=== PATIENT | female | born 1985 | race Hispanic/Latino ===

== ENCOUNTER 2017-10-12 08:31 | Observation (INO) | payer MEDICAID | END 2017-10-12 10:08 | disposition home or self-care (01) | LOC: LDH 08:31 | PROVIDERS: ADMIT Specialist; ATTEND Specialist | DX: O24.419 Gestational diabetes mellitus in pregnancy, unspecified control (principal); Z79.4 Long term (current) use of insulin; Z3A.35 35 weeks gestation of pregnancy | CPT/HCPCS: 59025; 76819; G0378 ×3 ==

== ENCOUNTER 2018-03-27 13:33 | Emergency (ER) | payer MEDICAID, OTHER ==
[~2018-03-27 13:33] MED LIST: NPH,100V SQ
[2018-03-27] MEDS ORDERED: TETANUS/DIPHTHERIA TOXOID [ADULT] 0.5 ML VIAL IM ONE (14:16)
[2018-03-27] MEDS ORDERED: AMOXICILLIN/POTASSIUM CLAV 500-125 TABLET PO ONE (14:30)
== END 2018-03-27 15:05 | disposition home or self-care (01) ==
LOC: EDH 13:33
DX: S60.572A Other superficial bite of hand of left hand, initial encounter (principal); E11.9 Type 2 diabetes mellitus without complications; W54.0XXA Bitten by dog, initial encounter; Y93.89 Activity, other specified; Y92.098 Other place in other non-institutional residence as the place of occurrence of the external cause; Y99.8 Other external cause status
CPT/HCPCS: 90471; 90714

== ENCOUNTER 2019-10-10 17:49 | Observation (INO) | payer MEDICAID | END 2019-10-10 19:00 | disposition home or self-care (01) | LOC: LDH 17:49 | PROVIDERS: ADMIT Specialist; ATTEND Specialist | DX: O26.893 Other specified pregnancy related conditions, third trimester (principal); Z3A.33 33 weeks gestation of pregnancy | CPT/HCPCS: 59025; 76819; G0378 ==

== ENCOUNTER 2019-11-15 17:45 | Inpatient (IN) | payer MEDICAID ==
[~2019-11-15] VITALS: Ht 152.4 cm; Wt 94.8 kg
[2019-11-15] MEDS ORDERED: LACTATED RINGERS 1000ML 1,000 ML IV PRN (18:07)
[2019-11-15] MEDS ORDERED: AMPICILLIN 2GM+NS 100ML 100 ML IV SCH (18:15)
[2019-11-15] MEDS ORDERED: OXYTOCIN-LR 20 UNITS/1000 ML 1,000 ML IV SCH (19:00)
[2019-11-15] MEDS: AMPICILLIN 1GM+NS 50ML 50 ML IV SCH (23:04)
[2019-11-16] MEDS ORDERED: INSULIN HUMULIN R 100 UNIT/ML 3ML SQ SCH ×2 (01:00)
[2019-11-16] MEDS: AMPICILLIN 1GM+NS 50ML 50 ML IV SCH ×3 (02:32→22:15)
[2019-11-16] MEDS ORDERED: NALOXONE HCL 0.4 MG/1 ML ML IV PRN (08:00)
[2019-11-16] MEDS ORDERED: LACTATED RINGERS 500 ML 500 ML IV PRN (08:00)
[2019-11-16] MEDS ORDERED: EPHEDRINE SULFATE 50 MG/ML AMPULE IVP PRN (08:00)
[2019-11-16] MEDS ORDERED: LANOLIN 30GM OINTMENT TP PRN (11:15)
[2019-11-16] MEDS ORDERED: ACETAMINOPHEN-CODEINE 300/30MG TAB PO PRN (11:15)
[2019-11-16] MEDS ORDERED: OXYTOCIN-LR 20 UNITS/1000 ML 1,000 ML IV SCH (11:15)
[2019-11-16] MEDS ORDERED: WITCH HAZEL 1 PAD TP PRN (11:15)
[2019-11-16] MEDS ORDERED: BENZOCAINE/LANOLIN/ALOE VERA 60 ML AEROSOL TP PRN (11:15)
[2019-11-16] MEDS ORDERED: ACETAMINOPHEN 325 MG TAB PO PRN (11:15)
[2019-11-16] MEDS ORDERED: MAGNESIUM SULFATE 1,000 ML IV PRN (15:01)
[2019-11-16] MEDS ORDERED: CALCIUM GLUCONATE 1 GM/10 ML VIAL IV PRN (15:15)
[2019-11-16] MEDS ORDERED: MAGNESIUM 4GM PREMIX 100ML 100 ML IV PRN ×2 (15:15)
[2019-11-16] MEDS ORDERED: LABETALOL HCL 5 MG/ML 20ML VIAL IV SCH (18:55)
[2019-11-16 19:30] VITALS: BP 148/76; PULSE 57; RESP 18; TEMP 98.1
[2019-11-16 20:05] VITALS: BP 150/71; PULSE 57; RESP 18
[2019-11-16 20:34] VITALS: BP 166/70; PULSE 63; RESP 20
[2019-11-16] MEDS: DOCUSATE SODIUM 100 MG CAP PO SCH (21:35)
[2019-11-17] VITALS: BP 139/67; PULSE 60; RESP 20; TEMP 98.3
[2019-11-17] MEDS ORDERED: INSULIN HUMULIN R 100 UNIT/ML 3ML SQ SCH
[2019-11-17] MEDS: AMPICILLIN 1GM+NS 50ML 50 ML IV SCH ×2 (00:42→00:43)
[2019-11-17] MEDS: LACTATED RINGERS 1000ML 1,000 ML IV SCH ×2 (00:50→04:21)
[2019-11-17 03:30] VITALS: BP 139/69; PULSE 59; RESP 18; TEMP 98.4
[2019-11-17] MEDS: INSULIN HUMULIN R 100 UNIT/ML 3ML SQ SCH ×3 (06:00→18:00)
--- NOTE | 2019-11-17 06:30 | NUR ---
DR. PADILLA HERE AND WENT TO ASSESS PT, NEW ORDERS NOTEDFOR CLEAR LIQUID DIET.
[2019-11-17 14:35] VITALS: BP 145/86; PULSE 72; RESP 18; TEMP 98.2
[2019-11-17] MEDS: IBUPROFEN 600 MG TABLET PO PRN ×2 (15:09→21:05)
[2019-11-17] MEDS ORDERED: DIPH,PERTUSS(ACELL),TET VAC/PF 0.5 ML VIAL IM ONE (18:45)
[2019-11-17 20:23] VITALS: BP 146/76; PULSE 61; RESP 20; TEMP 98
[2019-11-17] MEDS: DOCUSATE SODIUM 100 MG CAP PO SCH (21:05)
[2019-11-17 23:20] VITALS: BP 140/57; PULSE 60; RESP 20; TEMP 98.2
[2019-11-18 03:47] VITALS: BP 150/78; PULSE 57; RESP 20; TEMP 97.8
[2019-11-18] MEDS: INSULIN HUMULIN R 100 UNIT/ML 3ML SQ SCH ×2 (06:00)
[2019-11-18] MEDS: IBUPROFEN 600 MG TABLET PO PRN (06:34)
[2019-11-18] MEDS ORDERED: DIPH,PERTUSS(ACELL),TET VAC/PF 0.5 ML VIAL IM ONE (07:00)
[2019-11-18 07:22] VITALS: BP 143/75; PULSE 59; RESP 18; TEMP 98
[2019-11-18] MEDS: DOCUSATE SODIUM 100 MG CAP PO SCH (09:06)
[2019-11-18 11:13] VITALS: BP 146/77; PULSE 59; RESP 18; TEMP 98.1
--- NOTE | 2019-11-18 14:05 | NUR ---
DISCHARGE PT LET UNIT VIA WHEELCHAIR, WITH BABY IN ARMS, ACCOMPANIED BY FAMILY. DENIED PAIN AND HAD NO COMPLAINTS. BABY STRAPPED IN CAR SEAT. PT AND BABY TRANSPORTED BY PERSONAL VEHICLE.
== END 2019-11-18 14:05 | disposition home or self-care (01) | DRG 560 ==
LOC: LDH 17:45 → WSH 11-17 14:30
PROVIDERS: ADMIT Specialist; ATTEND Specialist
PROC: 10D07Z6 Extraction of Products of Conception, Vacuum, Via Natural or Artificial Opening (ICD-10-PCS; principal; 2019-11-16)
PROC: 3E0234Z Introduction of Serum, Toxoid and Vaccine into Muscle, Percutaneous Approach (ICD-10-PCS; 2019-11-16)
PROC: 3E0R3BZ Introduction of Anesthetic Agent into Spinal Canal, Percutaneous Approach (ICD-10-PCS; 2019-11-16)
PROC: 00HU33Z Insertion of Infusion Device into Spinal Canal, Percutaneous Approach (ICD-10-PCS; 2019-11-16)
DX: O24.424 Gestational diabetes mellitus in childbirth, insulin controlled (principal); Z37.0 Single live birth; O16.4 Unspecified maternal hypertension, complicating childbirth; O66.0 Obstructed labor due to shoulder dystocia; Z3A.39 39 weeks gestation of pregnancy; Z79.4 Long term (current) use of insulin; Z23 Encounter for immunization; O99.824 Streptococcus B carrier state complicating childbirth

== ENCOUNTER 2020-02-16 11:24 | Day surgery (SDC) | payer MEDICAID ==
[2020-02-09 13:11] LABS: BASOPHILS % (AUTO) 0.6 % (0.0-5.0); EOSINOPHILS % (AUTO) 1.5 % (0.0-8.0); HEMATOCRIT 39.6 % (36-48); MEAN CORPUSCULAR HEMOGLOBIN 28.7 pg (27.0-33.0); MEAN CORPUSCULAR HGB CONC 33.3 g/dL (32.0-36.0); MEAN CORPUSCULAR VOLUME 86.1 fL (79-99); MONOCYTES % (AUTO) 5.9 % (3.0-13.0); NEUTROPHILS % (AUTO) 60.7 % (40.0-77.0); PLATELET COUNT (AUTO) 363 K/uL (130-400); RED CELL DISTRIBUTION WIDTH 12.9 % (11.0-15.5); WHITE BLOOD COUNT (AUTO) 8.8 K/uL (4.8-10.8)
[2020-02-15 10:36] VITALS: BP 142/84
[~2020-02-16] VITALS: Ht 160 cm; Wt 86.2 kg
[2020-02-16] VITALS (17 sets, daily range): BP systolic 123–165; BP diastolic 67–94
[~2020-02-16 11:24] MED LIST changes: +PREN-154 PO
[2020-02-16] MEDS ORDERED: SODIUM CHLORIDE 0.9% 1000ML 1,000 ML IV ONE (11:40)
[2020-02-16 12:33] LABS: CREATININE 0.7 mg/dL (0.5-1.5); POTASSIUM 4.1 mmol/L (3.5-5.1)
[2020-02-16] MEDS ORDERED: SUCCINYLCHOLINE CHLORIDE 20 MG/ML 10 ML VIAL ONE ×2 (13:09→13:11)
[2020-02-16] MEDS ORDERED: DEXAMETHASONE SOD PHOSPHATE 10MG/ML 1ML VIAL ONE (13:09)
[2020-02-16] MEDS ORDERED: LIDOCAINE PF 2% 5ML ABBOJECT ONE ×2 (13:09→13:11)
[2020-02-16] MEDS ORDERED: NEOSTIGMINE 5MG/5ML SYR IV ONE (13:10)
[2020-02-16] MEDS ORDERED: ROCURONIUM 10MG/1ML SYR 10 MG/ML ML ONE (13:10)
[2020-02-16] MEDS ORDERED: ONDANSETRON HCL 4 MG/2 ML VIAL ONE ×2 (13:10→14:01)
[2020-02-16] MEDS ORDERED: MIDAZOLAM HCL 1 MG/ML 2ML VIAL ONE (13:10)
[2020-02-16] MEDS ORDERED: FENTANYL CITRATE PF 50 MCG/1 ML 2ML VIAL ONE ×2 (13:10→13:53)
[2020-02-16] MEDS ORDERED: GLYCOPYRROLATE 1 MG/5 ML SYRINGE ONE (13:10)
[2020-02-16] MEDS ORDERED: PROPOFOL 10 MG/ML 20ML VIAL IV ONE (13:10)
[2020-02-16] MEDS ORDERED: MEPERIDINE-PF 25 MG/ML SYG ONE (15:09)
--- NOTE | 2020-02-16 15:46 | NUR ---
ASSESSMENT RECEIVED PT FROM PACU NURSE BRINDA RN. PT [id number]. DRSG X2 TO ABD DRY AND INTACT.
--- NOTE | 2020-02-16 16:15 | NUR ---
DISCHARGE ORAL AND WRITTEN DISCHARGE INSTRUCTIONS GIVEN TO PT AND PTS SISTER ALONG WITH PRESCRIPTIONS. NO OTHER QUESTIONS AT THIS TIME.
== END 2020-02-16 16:17 | disposition home or self-care (01) ==
LOC: DAH 11:24
PROVIDERS: ATTEND Specialist
DX: Z30.2 Encounter for sterilization (principal); Z20.828 Contact with and (suspected) exposure to other viral communicable diseases; E11.9 Type 2 diabetes mellitus without complications
CPT/HCPCS: 36415 ×2; 58671; 80048; 82948; 84703; 85025; 86850 ×2; 86900 ×2; 86901 ×2; A4215 ×2; A4221; A4223; A4264; A4351; A4663; C1751; C1769 ×2; C9803; J0330 ×2; J1100; J2001 ×2; J2175; J2250; J2405 ×2; J2704; J2710; J3010 ×2; J3490; J7030 ×2; U0003

== ENCOUNTER 2020-03-11 18:14 | Emergency (ER) | payer MEDICAID | END 2020-03-11 18:54 | disposition home or self-care (01) | LOC: EDH 18:14 | DX: Z48.02 Encounter for removal of sutures (principal); S31.115D Laceration without foreign body of abdominal wall, periumbilic region without penetration into peritoneal cavity, subsequent encounter; E11.9 Type 2 diabetes mellitus without complications ==

== ENCOUNTER → 2022-11-27 | Outpatient (CLI) | payer OTHER | END | disposition home or self-care (01) | LOC: DTH 11:05 | PROVIDERS: ATTEND Surgery | DX: Z71.3 Dietary counseling and surveillance (principal); E66.09 Other obesity due to excess calories; I10 Essential (primary) hypertension; E11.9 Type 2 diabetes mellitus without complications; E78.00 Pure hypercholesterolemia, unspecified; M19.91 Primary osteoarthritis, unspecified site; K21.9 Gastro-esophageal reflux disease without esophagitis; Z68.37 Body mass index [BMI] 37.0-37.9, adult | CPT/HCPCS: 97803 ==

== ENCOUNTER 2023-01-22 02:47 | Emergency (ER) | payer OTHER ==
[~2023-01-22] VITALS: Ht 152.4 cm; Wt 80.3 kg
[2023-01-22 02:48] VITALS: BP 131/79; PULSE 81; RESP 16
[2023-01-22 03:10] LABS: ADD UA MICROSCOPIC YES; APPEARANCE,URINE TURBID (CLEAR); BILIRUBIN,URINE NEGATIVE (NEGATIVE); COLOR,URINE YELLOW (YELLOW); GLUCOSE, URINE (UA) >=1000 mg/dL (NEGATIVE); KETONES,URINE NEGATIVE (NEGATIVE); LEUKOCYTE ESTERASE ,URINE 500 Leu/uL (NEGATIVE); NITRATE,URINE 2+ (NEGATIVE); OCCULT BLOOD,URINE MODERATE (NEGATIVE); PH,URINE 6.5 (5.0-8.0); PROTEIN,URINE 100 mg/dL (NEGATIVE); UROBILINOGEN,URINE 0.2 mg/dL (0.2-1.0)
[2023-01-22 03:15] LABS: RBC,URINE 51-100 /HPF (0-1); RENAL EPITHELIAL CELLS,URINE FEW /HPF (None Seen); UNCLASSIFIED CRYSTAL 11 /HPF (None Seen); WBC CLUMP MANY /HPF (0-1); WBC,URINE TNTC /HPF (0-1)
[2023-01-22] MEDS ORDERED: CEFTRIAXONE 2GM VIAL IJ ONE (04:00)
[2023-01-22] MEDS ORDERED: PHENAZOPYRIDINE HCL 200 MG TABLET PO ONE (04:00)
[2023-01-22] MEDS ORDERED: CEPH500B PO (04:48)
[2023-01-22] MEDS ORDERED: PHEN-847 PO (04:48)
== END 2023-01-22 04:52 | disposition home or self-care (01) ==
LOC: EDH 02:47
DX: N39.0 Urinary tract infection, site not specified (principal); E11.9 Type 2 diabetes mellitus without complications
CPT/HCPCS: 99283; 87077; 87088; 87186; 81001; J0696

== ENCOUNTER 2023-08-31 21:23 | Emergency (ER) | payer OTHER ==
[~2023-08-31] VITALS: Ht 152.4 cm; Wt 68.9 kg
[~2023-08-31 21:23] MED LIST changes: +FENO145T26 PO; +GLIM4TAB36 PO; +LISI5TAB21 PO; +METF-446 PO; -NPH,100V SQ; -PREN-154 PO
[2023-09-01] MEDS ORDERED: IBUP-1493 PO (01:18)
[2023-09-01] MEDS ORDERED: VALA10002 PO (01:18)
[2023-09-01 01:26] VITALS: BP 142/86; PULSE 82; RESP 16; O2SAT 99
== END 2023-09-01 01:28 | disposition home or self-care (01) ==
LOC: EDH 21:23
DX: B00.89 Other herpesviral infection (principal); I10 Essential (primary) hypertension; E78.00 Pure hypercholesterolemia, unspecified; E11.9 Type 2 diabetes mellitus without complications; Z79.84 Long term (current) use of oral hypoglycemic drugs; Z79.899 Other long term (current) drug therapy

== ENCOUNTER 2023-09-30 04:42 | Emergency (ER) | payer OTHER ==
[~2023-09-30] VITALS: Ht 175.3 cm; Wt 73.0 kg
[~2023-09-30 04:42] MED LIST changes: +IBUP-1493 PO; +VALA10002 PO
[2023-09-30 05:12] LABS: APPEARANCE,URINE CLOUDY (CLEAR); BACTERIA,URINE RARE /HPF (None Seen); BILIRUBIN,URINE NEGATIVE (NEGATIVE); COLOR,URINE LIGHT-YELLOW (YELLOW); GLUCOSE, URINE (UA) >=1000 mg/dL (NEGATIVE); KETONES,URINE NEGATIVE (NEGATIVE); LEUKOCYTE ESTERASE ,URINE 500 Leu/uL (NEGATIVE); MUCUS,URINE RARE LPF (None Seen); NITRATE,URINE NEGATIVE (NEGATIVE); PROTEIN,URINE 20 mg/dL (NEGATIVE); SQUAMOUS EPITHELIAL CELL,UR MANY /HPF (0-2); UROBILINOGEN,URINE 0.2 mg/dL (0.2-1.0); WBC CLUMP RARE /HPF (0-1); WBC,URINE TNTC /HPF (0-1)
[2023-09-30] MEDS ORDERED: LEVO750T68 PO (05:44)
[2023-09-30 05:57] VITALS: BP 130/79; PULSE 78; RESP 18; O2SAT 98
== END 2023-09-30 05:59 | disposition home or self-care (01) ==
LOC: EDH 04:42
DX: N39.0 Urinary tract infection, site not specified (principal); E11.9 Type 2 diabetes mellitus without complications; Z79.84 Long term (current) use of oral hypoglycemic drugs; Z79.899 Other long term (current) drug therapy
CPT/HCPCS: 81001; 87077; 87088; 87186

== ENCOUNTER 2024-02-10 10:44 | Emergency (ER) | payer SELFPAY ==
[~2024-02-10] VITALS: Ht 152.4 cm; Wt 66.2 kg
[~2024-02-10 10:44] MED LIST changes: +LEVO750T68 PO
[2024-02-10] MEDS ORDERED: FAMC500T8 PO (11:30)
[2024-02-10] MEDS ORDERED: IBUP-2077 PO (11:30)
[2024-02-10] MEDS: ibuPROFEN 800 MG TAB PO ONE (13:04)
[2024-02-10 13:13] VITALS: BP 149/87; PULSE 89; RESP 18; TEMP 98.6; O2SAT 98
== END 2024-02-10 13:19 | disposition home or self-care (01) ==
LOC: EDH 10:44
DX: A60.04 Herpesviral vulvovaginitis (principal); E11.9 Type 2 diabetes mellitus without complications; Z79.899 Other long term (current) drug therapy; Z98.890 Other specified postprocedural states